=== PATIENT | female | born 1995 ===

== ENCOUNTER 2018-08-09 10:49 | Day surgery (SDC) | payer OTHER ==
[2018-07-14 12:13] VITALS: BMI 17.3
[2018-08-09] MEDS ORDERED: Lactated Ringer's 1,000 ML IV ONE (12:43)
[2018-08-09] MEDS ORDERED: Propofol 10 mg/ml Inj (20 ML) ONE (13:26)
[2018-08-09] MEDS ORDERED: Midazolam 2 MG/2 ML VIAL ONE (13:26)
[2018-08-09] MEDS ORDERED: ceFAZolin IV 1 gm in Dextrose 1 GM/50 ML BAG IVPB ONE (13:56)
[2018-08-09] MEDS ORDERED: Silver Nitrate Topical - Stick ONE (14:16)
[2018-08-09 14:23] LABS: BASO % 0.5 % (0.0-2.0); EOS # 0.4 K/uL (0.0-0.7); HEMOGLOBIN 11.7 g/dL (12.0-16.0); LYMPH # 2.2 K/uL (1.0-4.3); LYMPH % 28.9 % (20.0-40.0); MEAN CELL VOLUME 80.1 fl (81.0-99.0); MEAN CORPUSCULAR HEMOGLOBIN 25.5 pg (27.0-31.0); MEAN CORPUSCULAR HGB CONC 31.8 g/dL (33.0-37.0); MEAN PLATELET VOLUME 9.3 fl (7.2-11.7); MONO # 0.5 K/uL (0.0-0.8); MONO % 6.1 % (0.0-10.0); NEUT # 4.4 K/uL (1.8-7.0); NEUT % 59.5 % (50.0-75.0); RBC 4.57 Mil/uL (3.80-5.20); RED CELL DISTRIBUTION WIDTH 14.8 % (11.5-14.5); WHITE BLOOD COUNT 7.5 K/uL (4.8-10.8)
[2018-08-09] MEDS ORDERED: HYDROmorphone 0.5 mg/0.5 ml ISec IVP PRN (14:33)
[2018-08-09] MEDS ORDERED: Lactated Ringer's 1,000 ML IV SCH (14:45)
[2018-08-09 16:03] VITALS: RESP 18
[2018-08-09 18:17] VITALS: BP 110/77; PULSE 83; TEMP 97.7; O2SAT 100
--- NOTE | 2018-08-10 07:49 | OP ---
PROCEDURE DATE: 08/09/2018 SURGEON: Shayne Taylor MD TOOL MAKER BENCH: None ANESTHESIOLOGIST: Daniel Hermosillo MD TYPE OF ANESTHESIA: General LMA. PREOPERATIVE DIAGNOSES: 1. Incapacitating pelvic pain. 2. Incapacitating abdominal pain. 3. Abnormal uterine bleeding. 4. submucous uterine fibroid POSTOPERATIVE DIAGNOSES: 1. Incapacitating pelvic pain. 2. Incapacitating abdominal pain. 3. Abnormal uterine bleeding. 4. submucous uterine fibroid PROCEDURES PERFORMED: 1. Exam under anesthesia. 2. Video assisted hysteroscopy. 3. operative hysteroscopy , hysteroscopic myomectomy, Myosure COMPLICATIONS: None. SAMPLES SENT: 1. uterine fibroid INDICATION FOR THE PROCEDURE AND CONSENT: The patient had a long history of pelvic pain, dysmenorrhea, dyspareunia, abdominal pain, and bladder pain. The patient had been thoroughly evaluated and counseled regarding the pros and cons of the procedure, the reasonable alternatives, and possible complications. She understood and accepted the risks involved. Literature was provided to the patient. The patient was understanding and given her history and per surgical exam, she was at high risk in an average patient. She accepted all the risks involved, and all the questions had been answered to her satisfaction. FINDINGS OF SURGERY: Genitalia: Normal external genitalia, cervix without lesion and polyps. Hysteroscopy: Hysteroscopy shows a uterine cavity almost complwtely filed by a large fibroid DESCRIPTION OF THE PROCEDURE: Initiation of the case: After adequate anesthesia was obtained, the patient was placed in the dorsal lithotomy position, and with extreme care, placement of the patient with hyperextension and hyperflexing of the hips. At this point, the patient was prepped and draped. The surgeon was gowned and gloved. A timeout was taken according to the hospital procedure and the procedure was started. At this point, we proceeded with a hysteroscopy. A speculum was placed into vagina, and the anterior lip of the cervix was grasped. The cervix was dilated, and a hysteroscope was inserted into the cavity. The operative scope was inserted and the Myosure device was inserted in the cavity . this was a laborious procedure as the fibroid was quite large. The fibroid was fully excised until ti was flush with the cavity . No damage to the cavity was made. No excessive bleeding was observed. at this point the instruments were removed and the patient was woken up . The patient tolerated the procedure well and was taken to the recovery room in excellent condition. Claudia SAENZ, Shayne BAILEY
== END 2018-08-09 18:40 | disposition home or self-care (01) ==
LOC: H.OPSURG 10:49
PROVIDERS: ATTEND Obstetrics & Gynecology Reproductive Endocrinology
DX: N80.0 Endometriosis of uterus (principal); K21.9 Gastro-esophageal reflux disease without esophagitis; N94.6 Dysmenorrhea, unspecified; D25.0 Submucous leiomyoma of uterus
CPT/HCPCS: 36415; 58561; 85025; 86850; 86900; 88305; J0690; J1170; J2250; J2405; J2704; J2765; J3010; J7030; J7120